=== PATIENT | male | born 1940 | race Caucasian/White ===

== ENCOUNTER 2017-11-17 20:33 | Inpatient (IN) | payer OTHER ==
[~2017-11-17] VITALS: Ht 172.7 cm; Wt 86.6 kg
[~2017-11-17 20:33] MED LIST: ACET-2154 PO; ASPI-605 PO; ATOR40TA PO; BISA10SU8 RC; DOCU-141 PO; GABA300C PO; INSU300I SQ; MAGN400T40 PO; PANT40TA2 PO
[2017-11-17] MEDS ORDERED: MEMA28CA PO (20:53)
[2017-11-17] MEDS ORDERED: RAMI2.5C PO (20:53)
[2017-11-17] MEDS ORDERED: BRIM5DRO2 EACHEYE (20:53)
[2017-11-17] MEDS ORDERED: BIMA2.5D5 EACHEYE (20:53)
[2017-11-17] MEDS ORDERED: INSU100C4 SQ (20:53)
[2017-11-17 21:04] LABS: BASOPHILS # (AUTO) 0.1 K/uL (0.0-8.0); BASOPHILS % (AUTO) 0.7 % (0.0-2.0); EOSINOPHILS # (AUTO) 0.2 K/uL (0.0-0.7); EOSINOPHILS % (AUTO) 2.3 % (0.0-7.0); HEMATOCRIT 38.9 % (36.7-47.1); LYMPHOCYTES # (AUTO) 2.1 K/uL (20.0-40.0); LYMPHOCYTES % (AUTO) 24.6 % (20.5-51.5); MEAN CORPUSCULAR HEMOGLOBIN 27.5 uug (23.8-33.4); MEAN CORPUSCULAR HGB CONC 33 g/dL (32.5-36.3); MEAN CORPUSCULAR VOLUME 82.3 fL (73.0-96.2); MONOCYTES # (AUTO) 0.6 K/uL (2.0-10.0); MONOCYTES % (AUTO) 7.4 % (0.0-11.0); NEUTROPHILS # (AUTO) 5.7 K/uL (1.8-8.9); PLATELET COUNT (AUTO) 208 K/uL (152-348); RED BLOOD CELL COUNT(AUTO) 4.73 MIL/uL (4.06-5.63); WHITE BLOOD COUNT (AUTO) 8.7 K/uL (3.6-10.2)
--- NOTE | 2017-11-17 21:11 | NUR ---
Pt went down to radiology dept for CT scan.
[2017-11-17 21:21] LABS: CARBON DIOXIDE 31 mmol/L (21-32); CHLORIDE 104 mmol/L (98-107); CREATININE 1.3 mg/dL (0.6-1.3); GLUCOSE 226 mg/dL (74-106); POTASSIUM 4.9 mmol/L (3.5-5.1); UREA NITROGEN, BLOOD 26 mg/dL (7-18)
[2017-11-17 21:26] LABS: ALANINE AMINOTRANSFERASE 22 U/L (16-63); ALKALINE PHOSPHATASE 98 U/L (50-136); ASPARTATE AMINOTRANSFERASE 14 U/L (15-37); BILIRUBIN,DIRECT 0.1 mg/dL (0.0-0.2); BILIRUBIN,TOTAL 0.2 mg/dL (0.2-1.0); TOTAL PROTEIN, SERUM 6.9 g/dL (6.4-8.2)
[2017-11-17 21:30] LABS: THYROID STIMULATING HORMONE 2.911 mIU/mL (0.358-3.740)
[2017-11-17 21:38] LABS: ETHANOL < 3 MG/DL (0-0)
[2017-11-17] MEDS ORDERED: IV NORMAL SALINE 500 ML BAG IV ONE (21:45)
[2017-11-17 23:20] LABS: *BILIRUBIN,URIN NEGATIVE (NEGATIVE); *BLOOD, URINE Trace-lysed (NEGATIVE); *CLARITY,URINE CLEAR (CLEAR); *COLOR,URINE YELLOW (YELLOW); *KETONES,URINE NEGATIVE (NEGATIVE); *PROTEIN,URINE NEGATIVE (NEGATIVE); *UROBILINOGEN,URINE 0.2 E.U./dl (NORMAL); LEUKOCYTE ESTERASE ,URINE NEGATIVE (NEGATIVE); NITRITE, URINE NEGATIVE (NEGATIVE); UGLUCOSE NEGATIVE (NEGATIVE)
[2017-11-17 23:39] LABS: BACTERIA,URINE NONE SEEN /HPF (NONE SEEN); RBC,URINE 0-3 /HPF (0-3); SQUAMOUS EPITHELIAL CELL,UR FEW /HPF (NONE SEEN); YEAST,URINE FEW /HPF (NONE SEEN)
[2017-11-17 23:42] LABS: *AMPHETAMINE, URINE NEGATIVE (NEGATIVE); *BARBITURATE, URINE NEGATIVE (NEGATIVE); *CANNABINOID, URINE NEGATIVE (NEGATIVE); *COCCAINE, URINE NEGATIVE (NEGATIVE); *OPIATE, URINE NEGATIVE (NEGATIVE); *PHENCYCLIDINE SCREEN,URINE NEGATIVE (NEGATIVE)
--- NOTE | 2017-11-17 23:50 | NUR ---
IV removed. Catheter intact and site benign. Pressure and 4x4 gauze applied to site. No bleeding noted.
--- NOTE | 2017-11-17 23:58 | NUR ---
Pt. admitted to MHU , under care of Dr. Ochoa/Stew. Diagnosis: Psychosis. Belongs List completed. MRSA swab done. Report given to
--- NOTE | 2017-11-18 00:25 | NUR ---
Maria Eugenia Harper called at 0025. Pt became agitated, got up from his bed, combative with staff members after telling him he was going to be transferred to another room/MHU. Pt put on 4 pt restraints, was given Haldon 5 mg IM, Ativan 2 mg IM, and Benadryl 50 mg IM per MD verbal order. [facility] not able to let me document that I gave the medications.
[2017-11-18] MEDS ORDERED: LORAZEPAM 2 MG/1 ML VIAL ONE (00:36)
[2017-11-18] MEDS ORDERED: HALOPERIDOL LACTATE 5 MG/1 ML VIAL ONE (00:36)
[2017-11-18] MEDS ORDERED: diphenhydrAMINE 50 MG/1 ML VIAL ONE (00:36)
[2017-11-18] MEDS ORDERED: HALOPERIDOL LACTATE 5 MG/1 ML VIAL IM ONE (00:45)
[2017-11-18] MEDS ORDERED: LORAZEPAM 2 MG/1 ML VIAL IM ONE (00:45)
[2017-11-18] MEDS ORDERED: diphenhydrAMINE 50 MG/1 ML VIAL IM ONE (00:45)
[2017-11-18 01:45] VITALS: BP 147/73
[2017-11-18] MEDS ORDERED: MAG HYDROX/AL HYDROX/SIMETH 30 ML LIQUID UDC PO PRN (03:15)
[2017-11-18] MEDS ORDERED: MAGNESIUM HYDROXIDE 30 ML LIQUID UDC PO PRN (03:15)
[2017-11-18] MEDS ORDERED: LORAZEPAM 1 MG TABLET PO PRN (03:15)
[2017-11-18] MEDS ORDERED: ACETAMINOPHEN 325 MG TABLET PO PRN (03:15)
[2017-11-18] MEDS ORDERED: TEMAZEPAM 7.5 MG CAPSULE PO PRN (03:15)
--- NOTE | 2017-11-18 03:28 | NUR ---
received to care, from the emergency room, on a 72 hour hold for danger to others, a transfer from [facility]. according to the hold, he had become combative with his room mate, and other peers, which is not baseline behavior for him. upon arrival at the emergency room, he was initially calm, but when they attempted to transfer him, he became combative, requiring an emergency IM shot of haldol 5 mg/ ativan 2 mg/ benadryl 50 mg, at 0025, which was effective in calming him down. he arrived on the unit at 0145, and was asleep, but became combative when staff attempted to interview and do a physical assessment/ body check, on him. he refused the assessment, and went back to sleep. as of 327, he remains asleep. no distress noted. will continue to monitor closely.
--- NOTE | 2017-11-18 06:00 | NUR ---
slept 4 hours total. continues to sleep. no distress noted.
[2017-11-18 07:30] VITALS: BP 169/96
[2017-11-18 10:44] VITALS: BP 149/75
[2017-11-18] MEDS ORDERED: INSULIN ASPART 300 UNIT/3 ML CARTRIDGE SQ SCH (14:00)
[2017-11-18] MEDS ORDERED: BIMATOPROST 0.01% OPHT DROP 2.5 ML BOTTLE OP SCH (14:00)
[2017-11-18] MEDS ORDERED: BISACODYL 10 MG SUPP.RECT RC PRN (14:00)
[2017-11-18] MEDS: ASPIRIN EC 81 MG TABLET.DR PO SCH (14:00)
[2017-11-18] MEDS ORDERED: RAMIPRIL 2.5 MG CAPSULE PO SCH (14:00)
[2017-11-18] MEDS: PANTOPRAZOLE SODIUM 40 MG TABLET.DR PO SCH (14:00)
[2017-11-18] MEDS: RAMIPRIL 1.25 MG CAPSULE PO SCH (14:41)
[2017-11-18] MEDS ORDERED: BLOO-697 IN (14:42)
[2017-11-18] MEDS: MAGNESIUM OXIDE 400 MG TABLET PO SCH (15:18)
[2017-11-18] MEDS ORDERED: DEXTROSE 50% 50 ML DISP.SYRIN IV PRN (15:30)
[2017-11-18] MEDS: INSULIN GLARGINE,HUM 300 UNITS/3 ML CARTRIDGE SQ SCH (15:30)
[2017-11-18] MEDS: BLOOD SUGAR DIAGNOSTIC 1 EACH STRIP VI SCH ×3 (16:13→22:09)
[2017-11-18] MEDS: INSULIN REGULAR, HUMAN 300 UNIT/3 ML VIAL SQ SCH (16:13)
[2017-11-18] MEDS: BRIMONIDINE 0.2% OPHT DROP 10 ML BOTTLE EACHEYE SCH (16:35)
[2017-11-18] MEDS: TIMOLOL MALEATE 0.5% OPHT DROP 5 ML BOTTLE EACHEYE SCH (16:35)
[2017-11-18] MEDS: DOCUSATE SODIUM 100 MG CAPSULE PO SCH (16:36)
[2017-11-18 16:44] VITALS: BP 174/80
[2017-11-18 19:45] VITALS: BP 144/69
[2017-11-18] MEDS: LATANOPROST OPHT DROP 2.5 ML BOTTLE EACHEYE SCH (21:00)
[2017-11-18] MEDS: RIVASTIGMINE TARTRATE 1.5 MG CAPSULE PO SCH (21:38)
[2017-11-18] MEDS: risperiDONE 0.5 MG TABLET PO SCH (21:39)
[2017-11-18] MEDS: ATORVASTATIN 40 MG TABLET PO SCH (21:39)
--- NOTE | 2017-11-18 22:00 | NUR ---
received to care, asleep in bed. pt is easy to awaken, but he falls right back to sleep. initially, bedtime medications were held, but were eventually given, when he appeared to be restless. he used the urinal by himself, with out assist. blood sugar check at 2143 was 61. pt was given 4 oz of apple juice, which he took. he was also offered a sandwich, which he refused. as of 2199, he appears to be asleep. no distress noted. will continue to monitor closely.
--- NOTE | 2017-11-18 22:09 | NUR ---
blood sugar is now 96. remains asymptomatic. continues to sleep. no distress noted.
--- NOTE | 2017-11-19 06:00 | NUR ---
slept 9 hours total.
[2017-11-19] MEDS: PANTOPRAZOLE SODIUM 40 MG TABLET.DR PO SCH (06:06)
[2017-11-19] MEDS: BLOOD SUGAR DIAGNOSTIC 1 EACH STRIP VI SCH ×5 (06:06→20:27)
--- NOTE | 2017-11-19 06:07 | NUR ---
blood sugar is now 56. pt denies any symptoms of hypoglycemia. 4 oz. orange juice was given. will continue to monitor closely.
--- NOTE | 2017-11-19 06:36 | NUR ---
blood sugar is now 70. pt continues to remain asymptomatic
[2017-11-19 07:30] VITALS: BP 142/79
[2017-11-19] MEDS: INSULIN REGULAR, HUMAN 300 UNIT/3 ML VIAL SQ SCH ×3 (07:30→16:30)
[2017-11-19] MEDS: INSULIN GLARGINE,HUM 300 UNITS/3 ML CARTRIDGE SQ SCH (09:00)
--- NOTE | 2017-11-19 09:30 | NUR ---
0636 BS 70 mg/dl , and patient eat only 25 % breakfast.
[2017-11-19] MEDS: DOCUSATE SODIUM 100 MG CAPSULE PO SCH ×2 (09:33→17:44)
[2017-11-19] MEDS: risperiDONE 0.5 MG TABLET PO SCH ×2 (09:33→20:07)
[2017-11-19] MEDS: ASPIRIN EC 81 MG TABLET.DR PO SCH (09:33)
[2017-11-19] MEDS: MAGNESIUM OXIDE 400 MG TABLET PO SCH (09:33)
[2017-11-19] MEDS: RIVASTIGMINE TARTRATE 1.5 MG CAPSULE PO SCH ×2 (09:33→20:07)
[2017-11-19] MEDS: BRIMONIDINE 0.2% OPHT DROP 10 ML BOTTLE EACHEYE SCH ×2 (09:34→17:45)
[2017-11-19] MEDS: TIMOLOL MALEATE 0.5% OPHT DROP 5 ML BOTTLE EACHEYE SCH ×2 (09:34→17:45)
[2017-11-19] MEDS: RAMIPRIL 1.25 MG CAPSULE PO SCH (09:35)
--- NOTE | 2017-11-19 10:37 | NUR ---
Utilization review (UR): Air Control/Anti Air Warfare Officer sent UR to [place] [facility] (fax: [phone], ph: [phone]). TRACKING# [id number]. bridge worker apprentice will continue to follow.
--- NOTE | 2017-11-19 13:15 | NUR ---
PATIENT REFUSED TO EAT LUNCH, HUMULIN R 10 UNITS NOT ADMINISTERED.
[2017-11-19 16:33] VITALS: BP 92/55
--- NOTE | 2017-11-19 18:58 | NUR ---
Patient not eating his meals, patient educated and encouraged the risk of not eating due to his diagnosis DM type 2 but patient strongly refused. INSTALLATION AND SERVICE TECHNICIAN,Eduardo Hand notified regarding patient poor appetite, not eatin his meals and routine Humulin R 10 units not administered.
[2017-11-19] MEDS: ATORVASTATIN 40 MG TABLET PO SCH (20:07)
[2017-11-19] MEDS: LATANOPROST OPHT DROP 2.5 ML BOTTLE EACHEYE SCH (20:07)
[2017-11-19 20:15] VITALS: BP 147/85
[2017-11-19] MEDS: INSULIN REGULAR, HUMAN 300 UNIT/3 ML VIAL SQ PRN (21:04)
--- NOTE | 2017-11-19 22:30 | NUR ---
received to care, awake, wandering around his room, with a semi steady gait. compliant with medications, but refused to eat or have a snack. insulin coverage was held, due to his not eating. he remained agitated and restless, so he was given PRN restoril, at 2133. by 2199, he went to bed. as of 2229, he appears to be asleep. no distress noted. will continue to monitor closely.
[2017-11-20] MEDS: PANTOPRAZOLE SODIUM 40 MG TABLET.DR PO SCH (06:27)
[2017-11-20] MEDS: BLOOD SUGAR DIAGNOSTIC 1 EACH STRIP VI SCH ×5 (06:27→21:03)
--- NOTE | 2017-11-20 07:00 | NUR ---
slept 6.5 hours total
[2017-11-20 07:30] VITALS: BP 114/70
[2017-11-20] MEDS: INSULIN REGULAR, HUMAN 300 UNIT/3 ML VIAL SQ SCH ×3 (07:30→16:30)
[2017-11-20] MEDS ORDERED: INSULIN GLARGINE,HUM 300 UNITS/3 ML CARTRIDGE SQ SCH (09:00)
[2017-11-20] MEDS: DOCUSATE SODIUM 100 MG CAPSULE PO SCH ×2 (09:17→17:00)
[2017-11-20] MEDS: MAGNESIUM OXIDE 400 MG TABLET PO SCH (09:17)
[2017-11-20] MEDS: ASPIRIN EC 81 MG TABLET.DR PO SCH (09:17)
[2017-11-20] MEDS: risperiDONE 0.5 MG TABLET PO SCH ×2 (09:17→20:31)
[2017-11-20] MEDS: RIVASTIGMINE TARTRATE 1.5 MG CAPSULE PO SCH ×2 (09:18→20:31)
[2017-11-20] MEDS: TIMOLOL MALEATE 0.5% OPHT DROP 5 ML BOTTLE EACHEYE SCH ×2 (09:18→17:09)
[2017-11-20] MEDS: BRIMONIDINE 0.2% OPHT DROP 10 ML BOTTLE EACHEYE SCH ×2 (09:20→17:09)
[2017-11-20] MEDS: RAMIPRIL 1.25 MG CAPSULE PO SCH (09:24)
--- NOTE | 2017-11-20 11:58 | NUR ---
Initial Discharge Instructions: Patient currently resides at [facility] [[address] [place] [address]; [phone]]. Spoke with pt's daughter at bedside, Lakeisha (ph. [phone]) who reports she would like to take the patient home [[address] [place] [address]] with them upon discharge. SW will continue to collaborate with pt, family, and MD regarding most appropriate discharge plans for the patient. SW will form a safe and proper discharge plan.
[2017-11-20] MEDS: INSULIN REGULAR, HUMAN 300 UNIT/3 ML VIAL SQ PRN (13:35)
--- NOTE | 2017-11-20 15:46 | NUR ---
UR Note: Septic Tank Cleaner faxed updated clinicals to [facility] [employer] [facility], Ct (ph [phone]; fax [phone]). Tracking# [id number]. SW will continue to follow-up.
[2017-11-20 16:22] VITALS: BP 129/75
--- NOTE | 2017-11-20 16:55 | NUR ---
Gps/Volunteer Services Director- Blood Sugar of 48 this pm, result called to Yazan POE, reviewed insulin doses.Informed patient ate 100% of lunch .
--- NOTE | 2017-11-20 17:15 | NUR ---
Gps/Crank Hand- Blood sugar rechecked 68. Dinner served, encouraged to eat, assisted with his dinner. Will continue to monitor blood sugar, will recheck again.
--- NOTE | 2017-11-20 17:53 | NUR ---
Gps/Clearing Supervisor- Blood sugar 84, ate dinner with min. assist, needing prompting and encouragement . Refused to eat too much per pt. he is afraid her might throw up.
--- NOTE | 2017-11-20 18:17 | NUR ---
Gps/Southeast Regional Sales Manager- Yazan POE in to see patient, reviewed insulin doses.
[2017-11-20] MEDS: ATORVASTATIN 40 MG TABLET PO SCH (20:31)
[2017-11-20] MEDS: LATANOPROST OPHT DROP 2.5 ML BOTTLE EACHEYE SCH (20:38)
[2017-11-20 20:44] VITALS: BP 106/62
--- NOTE | 2017-11-20 20:46 | NUR ---
gps: blood sugar 43mg/dl. 4 oz orange juice given. charge nurse made aware. patient a/o and verbally responsive.
--- NOTE | 2017-11-20 21:03 | NUR ---
Recheck blood sugar 74 mg/dl. turkey sandwich given for hs snack. continue monitoring for low blood sugar.
[2017-11-21] MEDS: PANTOPRAZOLE SODIUM 40 MG TABLET.DR PO SCH (06:04)
--- NOTE | 2017-11-21 06:11 | NUR ---
GPS: Remain calm and cooperative with medications and care. Slept 7 hrs through the night. no behavior problem noted at this time. continue plan of care.
[2017-11-21] MEDS: BLOOD SUGAR DIAGNOSTIC 1 EACH STRIP VI SCH ×3 (06:28→21:22)
[2017-11-21] MEDS: BRIMONIDINE 0.2% OPHT DROP 10 ML BOTTLE EACHEYE SCH ×2 (08:13→16:49)
[2017-11-21] MEDS: TIMOLOL MALEATE 0.5% OPHT DROP 5 ML BOTTLE EACHEYE SCH ×2 (08:13→16:50)
[2017-11-21] MEDS: MAGNESIUM OXIDE 400 MG TABLET PO SCH (08:33)
[2017-11-21] MEDS: ASPIRIN EC 81 MG TABLET.DR PO SCH (08:34)
[2017-11-21] MEDS: DOCUSATE SODIUM 100 MG CAPSULE PO SCH ×2 (08:34→16:51)
[2017-11-21] MEDS: risperiDONE 0.5 MG TABLET PO SCH ×2 (08:34→21:21)
[2017-11-21] MEDS: RIVASTIGMINE TARTRATE 1.5 MG CAPSULE PO SCH ×2 (08:35→21:20)
[2017-11-21] MEDS: RAMIPRIL 1.25 MG CAPSULE PO SCH (08:37)
[2017-11-21] MEDS: INSULIN REGULAR, HUMAN 300 UNIT/3 ML VIAL SQ SCH ×3 (09:24→16:30)
[2017-11-21 11:10] VITALS: BP 133/84
[2017-11-21] MEDS ORDERED: INSULIN GLARGINE,HUM 300 UNITS/3 ML CARTRIDGE SQ SCH (12:28)
--- NOTE | 2017-11-21 15:50 | NUR ---
Gps/Truckload Checker- Noted during shower by OTTO, noted appeared to be abrasion to right lower leg area. Redness noted, also spots of brownish discolorations to his feet. Patient does not remember how he got the abrasion, denies numbness.Site kept clean and dry, covered w/ bandaid for now.
[2017-11-21 16:02] VITALS: BP_SYST 117; BP_SYST 93; BP_DIAS 57; BP_DIAS 73
--- NOTE | 2017-11-21 16:07 | NUR ---
UR: Sleeve Baster sent UR to Ct fine [facility] (fax: [phone], ph: [phone]). TRACKING# [id number]. lawn care worker will continue to follow.
--- NOTE | 2017-11-21 17:06 | NUR ---
Gps/Infirmary Attendant- Initial accu-check BS 45, patient was asymtomatic, 8 0z. orange juice was given with dannie crackers. Blood sugar rechecked was 106.
--- NOTE | 2017-11-21 17:23 | NUR ---
GPS/RN- contacted Dr Godinez regarding patient right lower extremity abrasion (hoffman). patient with some redness surrounding abrasion, no drainage noted. orders received and read back Cleanse right lower extremity (hoffman) with normal saline, pat dry, apply triple antibiotic and cover with dressing twice a day. MD to see patient tomorrow and will order oral antibiotic at that time if needed.
[2017-11-21] MEDS: NEOMY/BACITRAC/POLYMI OINT 28.35 GM TUBE TOP SCH ×2 (18:14→21:26)
--- NOTE | 2017-11-21 18:27 | NUR ---
Gps/Sap Bw Consultant- Wounf care to right hoffman abrasion, site cleansed with NS,pat dry, top. abx. applied as ordered, non adherent dressing and kerlix.
--- NOTE | 2017-11-21 19:40 | NUR ---
RECEIVED PATIENT IN HIS ROOM IN BED , HE IS NOTED AWAKE A/O X 2, HE IS ABLE TO AMBULATE WITH STEADY GAIT AND ABLE TO MAKE HIS NEEDS KNOWN, HE IS NOTED WITHDRAWN, AND EASILY IRRITABLE. HOWEVER, NO AGGRESSIVE/COMBATIVE BX NOTED AT THIS TIME. CONTINUE COMPLAINT WITH MEDICATION REGIMENT DIET AND PLAN OF CARE. SAFETY WAS EMPHASIS, WILL CONTINUE TO MONITOR.
[2017-11-21 20:56] VITALS: BP 148/75
[2017-11-21] MEDS: INSULIN GLARGINE,HUM 300 UNITS/3 ML CARTRIDGE SQ SCH (21:00)
[2017-11-21] MEDS: LATANOPROST OPHT DROP 2.5 ML BOTTLE EACHEYE SCH (21:15)
[2017-11-21] MEDS: ATORVASTATIN 40 MG TABLET PO SCH (21:20)
--- NOTE | 2017-11-21 22:00 | NUR ---
PATIENT BLOOD SUGAR WAS 181, HUMULIN R 3 UNITS WERE GIVEN. LANTUS 15 UNITS WAS HELD D/T PATIENT POOR FOOD INTAKE AND HISTORY OF HYPOGLYCEMIA. HE ATE 25% OF HIS DINNER AND REFUSED QHS SNACKS. DEEPIKA GIORDANO WAS NOTIFY. TYLENOL 650 MG PO PRN WAS GIVEN FOR MILD BACK PAIN.WILL CONTINUE TO MONITOR.
[2017-11-21] MEDS: INSULIN REGULAR, HUMAN 300 UNIT/3 ML VIAL SQ PRN (22:11)
--- NOTE | 2017-11-22 | NUR ---
PATIENT NOTED SLEEPING COMFORTABLE IN HIS BED. WILL CONTINUE TO MONITOR.
[2017-11-22] MEDS: PANTOPRAZOLE SODIUM 40 MG TABLET.DR PO SCH (06:41)
[2017-11-22] MEDS: BLOOD SUGAR DIAGNOSTIC 1 EACH STRIP VI SCH ×4 (06:58→21:47)
[2017-11-22 07:30] VITALS: BP 101/59
[2017-11-22] MEDS: INSULIN REGULAR, HUMAN 300 UNIT/3 ML VIAL SQ SCH ×3 (07:30→16:39)
[2017-11-22] MEDS: RAMIPRIL 1.25 MG CAPSULE PO SCH (09:00)
[2017-11-22] MEDS: DOCUSATE SODIUM 100 MG CAPSULE PO SCH ×2 (09:00→16:36)
[2017-11-22] MEDS: MAGNESIUM OXIDE 400 MG TABLET PO SCH (09:08)
[2017-11-22] MEDS: risperiDONE 0.5 MG TABLET PO SCH ×2 (09:08→21:43)
[2017-11-22] MEDS: ASPIRIN EC 81 MG TABLET.DR PO SCH (09:08)
[2017-11-22] MEDS: RIVASTIGMINE TARTRATE 1.5 MG CAPSULE PO SCH ×2 (09:08→21:43)
[2017-11-22] MEDS: BRIMONIDINE 0.2% OPHT DROP 10 ML BOTTLE EACHEYE SCH ×2 (09:11→16:36)
[2017-11-22] MEDS: NEOMY/BACITRAC/POLYMI OINT 28.35 GM TUBE TOP SCH ×2 (09:11→21:46)
[2017-11-22] MEDS: TIMOLOL MALEATE 0.5% OPHT DROP 5 ML BOTTLE EACHEYE SCH ×2 (09:11→16:36)
[2017-11-22] MEDS: INSULIN REGULAR, HUMAN 300 UNIT/3 ML VIAL SQ PRN ×2 (09:14→21:51)
--- NOTE | 2017-11-22 12:08 | NUR ---
Gps/Vp Emerging Media- Wound care done as ordered to his right lower leg, reddened areas noted, site cleansed with NS top.antibiotic applied as ordered, covered with kerlix. BS before lunch was 410, Yazan POE was in to see patient, was informed.
[2017-11-22 15:17] VITALS: BP 105/54
--- NOTE | 2017-11-22 18:22 | NUR ---
Gps/Compression Molding Machine Operator- Patient stayed in the activity room for dinner, no interactions w/ peers,making needs known .Ate 1/2 of his sandwich.Pleasant affect, cooperative .
[2017-11-22 21:16] VITALS: BP 104/60
[2017-11-22] MEDS: LATANOPROST OPHT DROP 2.5 ML BOTTLE EACHEYE SCH (21:42)
[2017-11-22] MEDS: ATORVASTATIN 40 MG TABLET PO SCH (21:45)
[2017-11-22] MEDS: INSULIN GLARGINE,HUM 300 UNITS/3 ML CARTRIDGE SQ SCH (21:55)
--- NOTE | 2017-11-22 22:24 | NUR ---
RECEIVED PATIENT PACING UP AN DOWN THE HALLWAY REQUESTING TO MAKE A PHONE CALL. AFTER THAT HE WAS CALM AND COOPERATIVE WITH STAFF FOR HIS MEDS AND CARE.HE APPEARS TO OCCASIONALLY TALK TO HIMSELF BUT DENIES HEARING VOICES. BLOOD SUGAR CHECKS DONE AND INSULIN COVERAGE GIVEN PER SLIDING SCALE. SHOWS NO S/S OF HYPOGLYCEMIA.WOUND TREATED CONTINUE WITH TRIPLE ANTIBIOTIC AND COVED. DID NOT C/O PAIN OR DISTRESS.FREQUENT CHECKS MADE TO HIS ROOM FOR SAFETY. WILL CONTINUE TO MONITOR.
[2017-11-23] MEDS: PANTOPRAZOLE SODIUM 40 MG TABLET.DR PO SCH (06:38)
--- NOTE | 2017-11-23 06:55 | NUR ---
SLEPT APPROX. FOR 5;30HRS. BLOOD SUGAR CHECK WAS 110. MEDS GIVEN AND WELL TAKEN
[2017-11-23 08:30] VITALS: BP 135/78
[2017-11-23] MEDS: BLOOD SUGAR DIAGNOSTIC 1 EACH STRIP VI SCH ×4 (09:12→21:20)
[2017-11-23] MEDS: MAGNESIUM OXIDE 400 MG TABLET PO SCH (09:15)
[2017-11-23] MEDS: RIVASTIGMINE TARTRATE 1.5 MG CAPSULE PO SCH ×2 (09:15→21:18)
[2017-11-23] MEDS: ASPIRIN EC 81 MG TABLET.DR PO SCH (09:15)
[2017-11-23] MEDS: risperiDONE 0.5 MG TABLET PO SCH ×2 (09:16→21:17)
[2017-11-23] MEDS: BRIMONIDINE 0.2% OPHT DROP 10 ML BOTTLE EACHEYE SCH ×2 (09:16→17:25)
[2017-11-23] MEDS: DOCUSATE SODIUM 100 MG CAPSULE PO SCH ×2 (09:16→18:11)
[2017-11-23] MEDS: TIMOLOL MALEATE 0.5% OPHT DROP 5 ML BOTTLE EACHEYE SCH ×2 (09:16→17:25)
[2017-11-23] MEDS: RAMIPRIL 1.25 MG CAPSULE PO SCH (09:18)
[2017-11-23] MEDS: INSULIN REGULAR, HUMAN 300 UNIT/3 ML VIAL SQ SCH ×3 (09:26→16:30)
[2017-11-23] MEDS: NEOMY/BACITRAC/POLYMI OINT 28.35 GM TUBE TOP SCH ×2 (12:20→21:19)
[2017-11-23 16:00] VITALS: BP 123/58
--- NOTE | 2017-11-23 17:45 | NUR ---
Pt BS 110, 10 units of regular insulin held. Pt did not eat well. Pt refused.
[2017-11-23 20:00] VITALS: BP 101/60
[2017-11-23] MEDS: LATANOPROST OPHT DROP 2.5 ML BOTTLE EACHEYE SCH (21:11)
[2017-11-23] MEDS: ATORVASTATIN 40 MG TABLET PO SCH (21:16)
[2017-11-23] MEDS: INSULIN GLARGINE,HUM 300 UNITS/3 ML CARTRIDGE SQ SCH (21:24)
[2017-11-23] MEDS: INSULIN REGULAR, HUMAN 300 UNIT/3 ML VIAL SQ PRN (21:26)
--- NOTE | 2017-11-23 23:30 | NUR ---
RECEIVED PATIENT IN THE ACTIVITY WATCHING T.V. HE WAS CALM AND COOPERATIVE WITH STAFF FOR HIS MEDS AND CARE.HE DENIES HEARING VOICES. BLOOD SUGAR CHECKS DONE, SNACKS GIVEN AND INSULIN COVERAGE GIVEN PER SLIDING SCALE INCLUDING LONG ACTING INSULIN. SHOWS NO S/S OF HYPOGLYCEMIA. WOUND TREATED AND COVERED WITH TRIPLE ANTIBIOTIC.DID NOT C/O PAIN OR DISTRESS.FREQUENT CHECKS MADE TO HIS ROOM FOR SAFETY. WILL CONTINUE TO MONITOR.
[2017-11-24] MEDS: PANTOPRAZOLE SODIUM 40 MG TABLET.DR PO SCH (06:27)
[2017-11-24] MEDS: BLOOD SUGAR DIAGNOSTIC 1 EACH STRIP VI SCH ×6 (06:28→22:21)
--- NOTE | 2017-11-24 06:41 | NUR ---
SLEPT INTERMITTENTLY FOR 5;30HRS. BLOOD SUGAR CHECKS WAS 208. WILL CONTINUE TO COVER WITH INSULIN PER SLIDING SCALE
[2017-11-24 07:30] VITALS: BP 121/76
[2017-11-24] MEDS: ASPIRIN EC 81 MG TABLET.DR PO SCH (09:55)
[2017-11-24] MEDS: DOCUSATE SODIUM 100 MG CAPSULE PO SCH ×2 (09:55→17:13)
[2017-11-24] MEDS: MAGNESIUM OXIDE 400 MG TABLET PO SCH (09:55)
[2017-11-24] MEDS: RIVASTIGMINE TARTRATE 1.5 MG CAPSULE PO SCH ×2 (09:55→20:08)
[2017-11-24] MEDS: risperiDONE 0.5 MG TABLET PO SCH ×2 (09:56→20:08)
[2017-11-24] MEDS: BRIMONIDINE 0.2% OPHT DROP 10 ML BOTTLE EACHEYE SCH ×2 (09:56→17:13)
[2017-11-24] MEDS: TIMOLOL MALEATE 0.5% OPHT DROP 5 ML BOTTLE EACHEYE SCH ×2 (09:56→17:13)
[2017-11-24] MEDS: INSULIN REGULAR, HUMAN 300 UNIT/3 ML VIAL SQ SCH ×3 (09:59→17:13)
[2017-11-24] MEDS: INSULIN REGULAR, HUMAN 300 UNIT/3 ML VIAL SQ PRN ×2 (10:00→17:14)
[2017-11-24] MEDS: RAMIPRIL 1.25 MG CAPSULE PO SCH (10:03)
[2017-11-24] MEDS: NEOMY/BACITRAC/POLYMI OINT 28.35 GM TUBE TOP SCH ×2 (11:22→20:17)
[2017-11-24 15:57] VITALS: BP 110/60
[2017-11-24] MEDS: ATORVASTATIN 40 MG TABLET PO SCH (20:08)
[2017-11-24] MEDS: LATANOPROST OPHT DROP 2.5 ML BOTTLE EACHEYE SCH (20:10)
[2017-11-24 20:27] VITALS: BP 106/51
--- NOTE | 2017-11-24 20:51 | NUR ---
gps: blood sugar 27 mg/dl.
--- NOTE | 2017-11-24 20:58 | NUR ---
GPS: Repeat blood sugar 30 mg/dl. Dr BO CALLED. RECEIVED ORDER TO PUSH D 50%/50ML IV PUSH. D50%/50 ML IV PUSH GIVEN VIA RN. PATIENT IS A/O X3 VERBALLY RESPONSIVE. NO ACUTE DISTRESS NOTED.CONTINUE MONITORING PATIENT FOR SAFETY.
[2017-11-24] MEDS: INSULIN GLARGINE,HUM 300 UNITS/3 ML CARTRIDGE SQ SCH (21:00)
[2017-11-25] MEDS: PANTOPRAZOLE SODIUM 40 MG TABLET.DR PO SCH (06:06)
[2017-11-25] MEDS: BLOOD SUGAR DIAGNOSTIC 1 EACH STRIP VI SCH ×4 (06:31→20:54)
--- NOTE | 2017-11-25 06:40 | NUR ---
GPS/BUSINESS ARCHITECT: REMAIN CALM AND COOPERATIVE WITH MEDICATIONS AND CARE. SHOWERED THIS MORNING. SLEPT 7 HRS THROUGH THE NIGHT. BLOOD SUGAR 186 MG/DL THIS MORNING. CONTINUE PLAN OF CARE,
[2017-11-25 07:30] VITALS: BP 139/73
[2017-11-25] MEDS: INSULIN REGULAR, HUMAN 300 UNIT/3 ML VIAL SQ SCH (07:30)
[2017-11-25 08:36] LABS: BASOPHILS # (AUTO) 0.1 K/uL (0.0-8.0); BASOPHILS % (AUTO) 0.7 % (0.0-2.0); EOSINOPHILS # (AUTO) 0.2 K/uL (0.0-0.7); EOSINOPHILS % (AUTO) 1.8 % (0.0-7.0); HEMATOCRIT 40.2 % (36.7-47.1); HEMOGLOBIN 13.5 g/dL (12.5-16.3); LYMPHOCYTES # (AUTO) 2.1 K/uL (20.0-40.0); LYMPHOCYTES % (AUTO) 20.8 % (20.5-51.5); MEAN CORPUSCULAR HEMOGLOBIN 27.6 uug (23.8-33.4); MEAN CORPUSCULAR HGB CONC 34 g/dL (32.5-36.3); MEAN CORPUSCULAR VOLUME 82.4 fL (73.0-96.2); MONOCYTES # (AUTO) 0.8 K/uL (2.0-10.0); MONOCYTES % (AUTO) 7.6 % (0.0-11.0); NEUTROPHILS % (AUTO) 69.1 % (38.5-71.5); PLATELET COUNT (AUTO) 185 K/uL (152-348); RED BLOOD CELL COUNT(AUTO) 4.88 MIL/uL (4.06-5.63); WHITE BLOOD COUNT (AUTO) 10.2 K/uL (3.6-10.2)
[2017-11-25 08:44] LABS: CARBON DIOXIDE 28 mmol/L (21-32); CHLORIDE 104 mmol/L (98-107); CREATININE 1.2 mg/dL (0.6-1.3); GLUCOSE 229 mg/dL (74-106); POTASSIUM 4.7 mmol/L (3.5-5.1); UREA NITROGEN, BLOOD 28 mg/dL (7-18)
[2017-11-25] MEDS: INSULIN REGULAR, HUMAN 300 UNIT/3 ML VIAL SQ PRN ×3 (09:31→17:39)
[2017-11-25] MEDS: ASPIRIN EC 81 MG TABLET.DR PO SCH (10:32)
[2017-11-25] MEDS: MAGNESIUM OXIDE 400 MG TABLET PO SCH (10:33)
[2017-11-25] MEDS: risperiDONE 0.5 MG TABLET PO SCH ×2 (10:33→20:55)
[2017-11-25] MEDS: DOCUSATE SODIUM 100 MG CAPSULE PO SCH ×2 (10:33→17:34)
[2017-11-25] MEDS: RAMIPRIL 1.25 MG CAPSULE PO SCH (10:34)
[2017-11-25] MEDS: BRIMONIDINE 0.2% OPHT DROP 10 ML BOTTLE EACHEYE SCH ×2 (10:35→17:34)
[2017-11-25] MEDS: NEOMY/BACITRAC/POLYMI OINT 28.35 GM TUBE TOP SCH ×2 (10:35→20:55)
[2017-11-25] MEDS: TIMOLOL MALEATE 0.5% OPHT DROP 5 ML BOTTLE EACHEYE SCH ×2 (10:35→17:34)
[2017-11-25] MEDS: RIVASTIGMINE TARTRATE 1.5 MG CAPSULE PO SCH ×2 (10:36→20:56)
--- NOTE | 2017-11-25 12:31 | NUR ---
SS Discharge Planning Note: SW attempted to contact patient's daughter, Lakeisha ([phone]) to discuss patient's pending discharge for 11/26/17. There was no answer, and SW left message for return call. SW will continue to follow-up.
--- NOTE | 2017-11-25 14:02 | NUR ---
WOUND CARE CONSULT: PT PRESENTS WITH RT LOWER LEG ABRASION. NO SIGN OF INFECTION, NO TENDERNESS NOTED. CONCUR WITH CURRENT WOUND TREATMENT. RECOMMENDATIONS MADE FOR SKIN PROTECTION AND DISCUSSED WITH NURSING STAFF. PT IS AMBULATORY AND CONTINENT. WILL SEE PRN. MAZARIEGOS IN AGREEMENT WITH PLAN OF CARE.
--- NOTE | 2017-11-25 14:27 | NUR ---
UR: Food Production Machine Operator sent UR to Ct fine [facility] (fax: [phone], ph: [phone]). TRACKING# [id number]. intake worker will continue to follow.
--- NOTE | 2017-11-25 14:56 | NUR ---
Firearms Report: Appraiser Oil And Water completed and submitted [employer] Firearms Report on 11/25/17 for 5250 GD certification.
--- NOTE | 2017-11-25 15:46 | NUR ---
1539 Patient look pale , rechecked Bs -202 mg/dl, asymptomatic
[2017-11-25 16:00] VITALS: BP 100/58
--- NOTE | 2017-11-25 18:06 | NUR ---
Pt cooperative, pleasant, pt had a visit from and daughter, pt seems upbeat, BS checked at 1445 it was 137, pt ate 100% of dinner, 2 units of insulin coverage given. No aggression or irritability noted on shift. Pt observed to be restless and anxious. Pt educated to elevate (R) leg and ambulate as tolerated to aid in healing of skin abrasion.
[2017-11-25 19:30] VITALS: BP 124/65
--- NOTE | 2017-11-25 19:40 | NUR ---
RECEIVED PATIENT IN HIS ROOM IN BED , HE IS NOTED AWAKE A/O X 2, HE IS ABLE TO AMBULATE WITH STEADY GAIT AND ABLE TO MAKE HIS NEEDS KNOWN, HE IS NOTED WITHDRAWN, LOW MOOD AND EASILY IRRITABLE. HOWEVER, NO AGGRESSIVE/COMBATIVE BX NOTED AT THIS TIME. RIGHT LOWER LEG ABRASION: NO S/S OF INFECTION NOTED AT THIS TIME. PATIENT DENIES PAIN OR DISCOMFORT, V/S STABLE, WILL CONTINUE WITH PLAN OF CARE. HE CONTINUE COMPLAINT WITH MEDICATION REGIMENT DIET AND PLAN OF CARE. SAFETY WAS EMPHASIS, WILL CONTINUE TO MONITOR.
[2017-11-25] MEDS: LATANOPROST OPHT DROP 2.5 ML BOTTLE EACHEYE SCH (20:55)
[2017-11-25] MEDS: ATORVASTATIN 40 MG TABLET PO SCH (20:56)
[2017-11-25] MEDS: INSULIN GLARGINE,HUM 300 UNITS/3 ML CARTRIDGE SQ SCH (21:00)
--- NOTE | 2017-11-25 22:00 | NUR ---
ACCU CHECK BLOOD SUGAR 119. PATIENT REFUSED TO EAT SNACKS AND REFUSED LANTUS. WILL CONTINUE TO MONITOR.
[2017-11-26] MEDS: PANTOPRAZOLE SODIUM 40 MG TABLET.DR PO SCH (06:25)
[2017-11-26] MEDS: BLOOD SUGAR DIAGNOSTIC 1 EACH STRIP VI SCH ×2 (06:46→12:11)
[2017-11-26 07:30] VITALS: BP 103/59
[2017-11-26 09:00] VITALS: BP 103/59
[2017-11-26] MEDS: RAMIPRIL 1.25 MG CAPSULE PO SCH (09:00)
[2017-11-26] MEDS: RIVASTIGMINE TARTRATE 1.5 MG CAPSULE PO SCH (09:05)
[2017-11-26] MEDS: DOCUSATE SODIUM 100 MG CAPSULE PO SCH (09:06)
[2017-11-26] MEDS: MAGNESIUM OXIDE 400 MG TABLET PO SCH (09:06)
[2017-11-26] MEDS: ASPIRIN EC 81 MG TABLET.DR PO SCH (09:06)
[2017-11-26] MEDS: risperiDONE 0.5 MG TABLET PO SCH (09:06)
[2017-11-26] MEDS: NEOMY/BACITRAC/POLYMI OINT 28.35 GM TUBE TOP SCH (09:07)
[2017-11-26] MEDS: TIMOLOL MALEATE 0.5% OPHT DROP 5 ML BOTTLE EACHEYE SCH (09:08)
[2017-11-26] MEDS: BRIMONIDINE 0.2% OPHT DROP 10 ML BOTTLE EACHEYE SCH (09:09)
[2017-11-26] MEDS: INSULIN REGULAR, HUMAN 300 UNIT/3 ML VIAL SQ PRN ×2 (09:19→12:14)
--- NOTE | 2017-11-26 09:48 | NUR ---
Discharge Note: Patient will be discharged back home with his family [[address] [place] [address]; [phone]] via private transportation between 12-1pm. Spoke with patients daughter, Cindy ([phone]) who has agreed to provide transportation and is aware and agreeable with discharge plans. Patient is alert and oriented x2 and is cooperative. Patient will continue to follow-up with his Primary Care Physician, Dr. Yung Chris [[address] [place] [address]; ]. Patient will also be given outpatient psychiatry referrals from his insurance, [employer]. Spoke with [facility] Aftercare Coordinator, Lorie ([phone]) who reports she will follow up with the family to provide appointments, and she will follow-up with the family weekly to ensure care is managed. Patient will also be followed by [facility]. Spoke with Electroplating Worker, Val ([phone]) who reports she will continue to aid the patient in his transition back home. Patient was provided with mental health resources to [facility] , Fiona Celis , and the National Suicide Prevention Lifeline .
--- NOTE | 2017-11-26 12:48 | NUR ---
UR Note: ANGELLA faxed discharge clinicals to [facility], [place] (ph [phone]; fax [phone]). Tracking#[id number]. ANGELLA also faxed Home Health Order for medication management to Ct. Awaiting authorization. ANGELLA will continue to follow-up.
[2017-11-26] MEDS ORDERED: LACTOBACILLUS RHAMNOSUS GG 1 EACH CAPSULE PO SCH (13:15)
[2017-11-26] MEDS: CEPHALEXIN MONOHYDRATE 500 MG CAPSULE PO SCH ×2 (13:35→14:00)
--- NOTE | 2017-11-26 14:23 | NUR ---
1300 DISCHARGE INSTRUCTION GIVEN TO PATIENT'S DAUGHTER KEVIN REGARDING MEDICATIONS TO CONTINUE AT HOME, SHOW HER HOW TO CHANGE DRESSING ON PATIENT'S WOUND ON RIGHT LOWER EXTREMITIES-DAUGHTER VERBALIZED UNDERSTANDING. PRESCRIPTIONS BOTH PSYCHIATRY AND MEDICAL GIVEN TO DAUGHTER , INSTRUCTED TO BE FILLED IT TO [facility]. 1335 PATIENT STARTED ON ANTIBIOTIC FOR INFECTED WOUND RIGHT LOWER EXT.1405 PATIENT DISCHARGED HOME WITH DAUGHTER VIA PRIVATE CAR FAIR CONDITION. pATIENT DENIES SI/HI. NO DELUSION. NO HALLUCINATION NOTED.
--- NOTE | 2017-11-27 10:58 | NUR ---
UR Note: freezing room worker received call from Ct Nagel CM ([phone]) who provided AUTH#[id number] for patient's stay. Case is now closed out.
== END 2017-11-26 15:04 | disposition home health service (06) | DRG 885 ==
LOC: ER 20:34 → GPS 23:50 → UNDOADMIN 23:50 → ER 11-18 00:14 → GPS 11-18 03:01
PROVIDERS: ADMIT Psychiatry & Neurology Psychiatry; ATTEND Internal Medicine
DX: F23 Brief psychotic disorder (principal); E11.65 Type 2 diabetes mellitus with hyperglycemia; F03.91 Unspecified dementia, unspecified severity, with behavioral disturbance; I25.10 Atherosclerotic heart disease of native coronary artery without angina pectoris; I10 Essential (primary) hypertension; Z95.1 Presence of aortocoronary bypass graft; K21.9 Gastro-esophageal reflux disease without esophagitis; E78.5 Hyperlipidemia, unspecified; Z79.899 Other long term (current) drug therapy; D63.8 Anemia in other chronic diseases classified elsewhere; E11.43 Type 2 diabetes mellitus with diabetic autonomic (poly)neuropathy; K31.84 Gastroparesis; Z79.4 Long term (current) use of insulin; E11.42 Type 2 diabetes mellitus with diabetic polyneuropathy; J01.00 Acute maxillary sinusitis, unspecified; J32.3 Chronic sphenoidal sinusitis
CPT/HCPCS: 36415; 70030-TC; 70450; 71045; 80307; 83605; 83735; 84443; 85025; 85730; 93005; A4663; G0480; J1200; J1630; J1815; J2060; J3490; J7040